=== PATIENT | male | born 1970 | race Caucasian/White ===

== ENCOUNTER 2020-06-03 19:33 | Emergency (ER) | payer MEDICAID ==
[~2020-06-03] VITALS: Ht 180.3 cm; Wt 97.7 kg
[~2020-06-03 19:33] MED LIST: CYCL-1 PO; NO HOME MEDS; OXYC-134 PO
[2020-06-03 19:44] VITALS: BP 136/91
[2020-06-03] MEDS ORDERED: ceFAZolin 1gm IM kit IM STA (20:08)
[2020-06-03] MEDS ORDERED: LIDOcaine 1% W/epiNEPHrine 1:200,000 10ml vial IJ ONE (20:10)
[2020-06-03] MEDS ORDERED: bacitracin 15gm ointment TP ONE (20:10)
[2020-06-03] MEDS ORDERED: ibuprofen tablet 400 MG TABLET PO ONE (20:10)
[2020-06-03] MEDS ORDERED: CEPH250T PO (20:32)
== END 2020-06-03 20:59 | disposition home or self-care (01) ==
LOC: ER 19:34
DX: S62.634A Displaced fracture of distal phalanx of right ring finger, initial encounter for closed fracture (principal); S61.312A Laceration without foreign body of right middle finger with damage to nail, initial encounter; Z86.69 Personal history of other diseases of the nervous system and sense organs; Z88.5 Allergy status to narcotic agent; Z79.2 Long term (current) use of antibiotics; Z79.899 Other long term (current) drug therapy; W27.8XXA Contact with other nonpowered hand tool, initial encounter; Y93.89 Activity, other specified; Y92.89 Other specified places as the place of occurrence of the external cause; Y99.8 Other external cause status
CPT/HCPCS: 29130; 73130; 96372; 99283; J0690

== ENCOUNTER 2020-10-05 10:36 | Emergency (ER) | payer MEDICAID ==
[~2020-10-05] VITALS: Ht 180.3 cm; Wt 102.3 kg
[2020-10-05] MEDS ORDERED: HYDROcodone/acetaminophen 10/325mg tab PO ONE (11:00)
[2020-10-05] MEDS ORDERED: HYDR-3965 PO (11:50)
[2020-10-05] MEDS ORDERED: METH-360 PO (11:50)
== END 2020-10-05 12:06 | disposition home or self-care (01) ==
LOC: ER 10:37
DX: R07.89 Other chest pain (principal); R07.81 Pleurodynia; R05 Cough; F17.200 Nicotine dependence, unspecified, uncomplicated; Z86.69 Personal history of other diseases of the nervous system and sense organs; Z72.89 Other problems related to lifestyle; Z88.5 Allergy status to narcotic agent; Z79.899 Other long term (current) drug therapy
CPT/HCPCS: 71046; 99283

== ENCOUNTER 2020-10-25 17:50 | Emergency (ER) | payer MEDICAID ==
[~2020-10-25] VITALS: Ht 180.3 cm; Wt 102.3 kg
[~2020-10-25 17:50] MED LIST changes: +HYDR-3965 PO; +METH-360 PO
[2020-10-25] MEDS ORDERED: ketorolac tromethamine 15mg/ml inj. IM ONE (18:25)
[2020-10-25] MEDS ORDERED: orphenadrine citrate 60mg/2ml inj. IM ONE (18:25)
[2020-10-25] MEDS ORDERED: ORPH100T2 PO (18:45)
[2020-10-25] MEDS ORDERED: IBUP-1984 PO (18:45)
[2020-10-25 19:20] VITALS: BP 142/81
== END 2020-10-25 19:21 | disposition home or self-care (01) ==
LOC: ER 17:50
DX: S29.011A Strain of muscle and tendon of front wall of thorax, initial encounter (principal); R07.81 Pleurodynia; Z86.69 Personal history of other diseases of the nervous system and sense organs; Z72.89 Other problems related to lifestyle; Z88.8 Allergy status to other drugs, medicaments and biological substances; Z79.899 Other long term (current) drug therapy; X50.0XXA Overexertion from strenuous movement or load, initial encounter; Y93.89 Activity, other specified; Y92.89 Other specified places as the place of occurrence of the external cause; Y99.8 Other external cause status
CPT/HCPCS: 71045; 96372; 99284; J1885; J2360

== ENCOUNTER 2020-12-25 15:41 | Emergency (ER) | payer MEDICAID ==
[~2020-12-25] VITALS: Ht 180.3 cm; Wt 99.9 kg
[~2020-12-25 15:41] MED LIST changes: -HYDR-3965 PO; +ORPH100T2 PO
[2020-12-25 16:22] LABS: BASOPHILS % (AUTO) 0.6 % (0-1); EOSINOPHILS # (AUTO) 0.1 X10'3 (0-0.9); EOSINOPHILS % (AUTO) 2.4 % (0-6); HEMATOCRIT 42.3 % (42.0-52.0); HEMOGLOBIN 14.6 g/dl (14.0-17.9); LYMPHOCYTES # (AUTO) 2.3 X10'3 (1.1-4.8); MEAN CORPUSCULAR HEMOGLOBIN 33.6 PG (27.0-31.0); MEAN CORPUSCULAR HGB CONC 34.5 g/dL (33.0-36.5); MEAN CORPUSCULAR VOLUME 97.3 FL (78-98); MEAN PLATELET VOLUME 6.1 FL (7.4-10.4); MONOCYTES # (AUTO) 0.7 X10'3 (0-0.9); NEUTROPHILS # (AUTO) 2.5 X10'3 (1.8-7.7); PLATELET COUNT 344 X10'3 (140-440); RED BLOOD COUNT 4.34 X10'6 (4.70-6.10); RED CELL DISTRIBUTION WIDTH 12.7 % (11.5-14.5); WHITE BLOOD COUNT 5.6 X10'3 (4.5-11.0)
[2020-12-25 16:40] LABS: ALANINE AMINOTRANSFERASE 49 U/L (12-78); ALBUMIN/GLOBULIN RATIO 1.1 (1.1-1.5); ALKALINE PHOSPHATASE 71 IU/L (46-116); ANION GAP 10 (8-16); ASPARTATE AMINO TRANSFERASE 25 U/L (10-37); BILIRUBIN,TOTAL 0.4 MG/DL (0.1-1.0); BLOOD UREA NITROGEN 9 MG/DL (7-18); BUN/CREATININE RATIO 12.5 (5.4-32.0); CALCIUM 9.3 MG/DL (8.5-10.1); CHLORIDE 98 MMOL/L (99-107); CREATININE 0.72 MG/DL (0.60-1.10); GLUCOSE 70 MG/DL (70-104); LIPASE 95 U/L (73-393); POTASSIUM 3.9 MMOL/L (3.5-5.1); SODIUM 135 MMOL/L (135-145); TOTAL CARBON DIOXIDE 26.9 MMOL/L (24-32); TOTAL PROTEIN 7.5 G/DL (6.4-8.2); eGFR > 90 ML/MIN
[2020-12-25] MEDS ORDERED: LIDOcaine 5% patch TP ONE (20:05)
[2020-12-25] MEDS ORDERED: ibuprofen tablet 400 MG TABLET PO ONE (20:05)
[2020-12-25] MEDS ORDERED: acetaminophen 325mg tablet PO ONE (20:05)
[2020-12-25] MEDS ORDERED: IBUP-1984 PO (20:07)
[2020-12-25] MEDS ORDERED: LIDO700A32 TOP (20:07)
[2020-12-25] MEDS ORDERED: ACET-812 PO (20:07)
[2020-12-25] MEDS ORDERED: HYDR-3965 PO (20:11)
[2020-12-25] MEDS ORDERED: ibuprofen 200mg tablet PO ONE (20:15)
[2020-12-25 20:34] VITALS: BP 147/105
== END 2020-12-25 20:33 | disposition home or self-care (01) ==
LOC: ER 15:42
DX: R07.81 Pleurodynia (principal); R10.9 Unspecified abdominal pain; K59.00 Constipation, unspecified; G40.909 Epilepsy, unspecified, not intractable, without status epilepticus; Z79.899 Other long term (current) drug therapy
CPT/HCPCS: 36415; 80053; 83690; 85025; 99283

== ENCOUNTER 2022-01-20 08:56 | Emergency (ER) | payer MEDICAID ==
[~2022-01-20] VITALS: Ht 180.3 cm; Wt 102.3 kg
[~2022-01-20 08:56] MED LIST changes: +ACET-812 PO; +LIDO700A32 TOP
[2022-01-20] MEDS ORDERED: ibuprofen tablet 400 MG TABLET PO ONE (10:05)
[2022-01-20 10:52] VITALS: BP 158/100
--- NOTE | 2022-01-20 10:53 | NUR ---
Splint applied, CSM intact.
--- NOTE | 2022-01-20 10:53 | NUR ---
Pt wanted BG checked. Result 97
== END 2022-01-20 11:21 | disposition home or self-care (01) ==
LOC: ER 08:56
DX: M25.531 Pain in right wrist (principal); R22.31 Localized swelling, mass and lump, right upper limb; Z72.89 Other problems related to lifestyle; Z88.8 Allergy status to other drugs, medicaments and biological substances; Z79.899 Other long term (current) drug therapy
CPT/HCPCS: 29125; 73110; 82948; 99284

== ENCOUNTER 2022-09-14 15:12 | Emergency (ER) | payer MEDICAID ==
[~2022-09-14] VITALS: Ht 180.3 cm; Wt 104.0 kg
[2022-09-14 15:33] LABS: BASOPHILS % (AUTO) 0.7 % (0-1); EOSINOPHILS # (AUTO) 0.1 X10'3 (0-0.9); EOSINOPHILS % (AUTO) 2.1 % (0-6); HEMATOCRIT 42.1 % (42.0-52.0); HEMOGLOBIN 14.5 g/dl (14.0-17.9); LYMPHOCYTES # (AUTO) 2.1 X10'3 (1.1-4.8); LYMPHOCYTES % (AUTO) 31.6 % (21-51); MEAN CORPUSCULAR HEMOGLOBIN 33.8 PG (27.0-31.0); MEAN CORPUSCULAR HGB CONC 34.5 g/dL (33.0-36.5); MEAN CORPUSCULAR VOLUME 97.9 FL (78-98); MEAN PLATELET VOLUME 6.1 FL (7.4-10.4); MONOCYTES # (AUTO) 0.7 X10'3 (0-0.9); MONOCYTES % (AUTO) 10.8 % (2-12); NEUTROPHILS # (AUTO) 3.6 X10'3 (1.8-7.7); NEUTROPHILS % (AUTO) 54.8 % (42-75); PLATELET COUNT 343 X10'3 (140-440); RED CELL DISTRIBUTION WIDTH 12.8 % (11.5-14.5); WHITE BLOOD COUNT 6.6 X10'3 (4.5-11.0)
[2022-09-14 15:52] LABS: ALANINE AMINOTRANSFERASE 42 U/L (12-78); ALBUMIN 3.9 G/DL (3.4-5.0); ALBUMIN/GLOBULIN RATIO 1.3 (1.1-1.5); ALKALINE PHOSPHATASE 64 IU/L (46-116); ANION GAP 8 (8-16); ASPARTATE AMINO TRANSFERASE 27 U/L (10-37); BILIRUBIN,TOTAL 0.4 MG/DL (0.1-1.0); BLOOD UREA NITROGEN 11 MG/DL (7-18); BUN/CREATININE RATIO 11.7 (5.4-32.0); CALCIUM 8.9 MG/DL (8.5-10.1); CHLORIDE 97 MMOL/L (99-107); CREATININE 0.94 MG/DL (0.60-1.10); GLUCOSE 94 MG/DL (70-104); MAGNESIUM 1.9 MG/DL (1.5-2.4); POTASSIUM 4.1 MMOL/L (3.5-5.1); SODIUM 131 MMOL/L (135-145); TOTAL CARBON DIOXIDE 26.4 MMOL/L (24-32); eGFR 84 ML/MIN
[2022-09-14] MEDS ORDERED: LORA-269 PO (17:42)
[2022-09-14 17:54] VITALS: BP 127/90
== END 2022-09-14 17:59 | disposition home or self-care (01) ==
LOC: ER 16:22
DX: R07.89 Other chest pain (principal); I10 Essential (primary) hypertension; F17.200 Nicotine dependence, unspecified, uncomplicated; Z86.69 Personal history of other diseases of the nervous system and sense organs; Z72.89 Other problems related to lifestyle; Z88.5 Allergy status to narcotic agent; Z79.899 Other long term (current) drug therapy
CPT/HCPCS: 36415; 71045; 80053; 83735; 83880; 84484; 85025; 93005; 99285

== ENCOUNTER 2022-12-17 08:13 | Emergency (ER) | payer MEDICAID ==
[~2022-12-17 08:13] MED LIST changes: +LORA-269 PO
== END 2022-12-17 10:22 | disposition left against medical advice (07) ==
LOC: ER 08:13
DX: M79.643 Pain in unspecified hand (principal); Z53.21 Procedure and treatment not carried out due to patient leaving prior to being seen by health care provider

== ENCOUNTER 2023-01-15 19:55 | Emergency (ER) | payer MEDICAID ==
[~2023-01-15] VITALS: Ht 180.3 cm; Wt 102.3 kg
[~2023-01-15 19:55] MED LIST changes: -ORPH100T2 PO; +ORPH100T4 PO
[2023-01-15 19:59] VITALS: BP 125/79
[2023-01-15] MEDS ORDERED: oxyCODONE/APAP 10/325mg tablet PO ONE (22:30)
[2023-01-15] MEDS ORDERED: OXYC-150 PO ×3 (23:46→23:59)
== END 2023-01-16 00:01 | disposition home or self-care (01) ==
LOC: ER 19:55
DX: S62.024A Nondisplaced fracture of middle third of navicular [scaphoid] bone of right wrist, initial encounter for closed fracture (principal); F17.200 Nicotine dependence, unspecified, uncomplicated; I10 Essential (primary) hypertension; Z88.5 Allergy status to narcotic agent; Z79.899 Other long term (current) drug therapy; Z79.1 Long term (current) use of non-steroidal anti-inflammatories (NSAID); Z79.2 Long term (current) use of antibiotics
CPT/HCPCS: 29125; 73110; 73130; 99284

== ENCOUNTER 2023-03-28 21:39 | Emergency (ER) | payer MEDICAID ==
[~2023-03-28] VITALS: Ht 180.3 cm; Wt 100.0 kg
[~2023-03-28 21:39] MED LIST changes: +OXYC-150 PO
[2023-03-28] MEDS ORDERED: LAMO200T51 PO (22:16)
[2023-03-28] MEDS ORDERED: LISI10TA27 PO (22:16)
[2023-03-28] MEDS ORDERED: ibuprofen tablet 400 MG TABLET PO ONE (22:40)
[2023-03-28 23:00] VITALS: BP 110/75
== END 2023-03-28 23:01 | disposition home or self-care (01) ==
LOC: ER 21:39
DX: M25.561 Pain in right knee (principal); R53.1 Weakness; I10 Essential (primary) hypertension; G40.909 Epilepsy, unspecified, not intractable, without status epilepticus; Z88.8 Allergy status to other drugs, medicaments and biological substances; Z79.899 Other long term (current) drug therapy; Z72.89 Other problems related to lifestyle; X50.1XXA Overexertion from prolonged static or awkward postures, initial encounter; Y93.H2 Activity, gardening and landscaping; Y92.89 Other specified places as the place of occurrence of the external cause; Y99.8 Other external cause status
CPT/HCPCS: 29505; 73564; 99284

== ENCOUNTER 2023-10-27 09:40 | Inpatient (IN) | payer MEDICAID ==
[~2023-10-27] VITALS: Ht 180.3 cm; Wt 95.5 kg
[~2023-10-27 09:40] MED LIST changes: -ACET-812 PO; -CYCL-1 PO; +LAMO200T51 PO; -LIDO700A32 TOP; +LISI10TA27 PO; -LORA-269 PO; -METH-360 PO; -NO HOME MEDS; -ORPH100T4 PO; -OXYC-134 PO; -OXYC-150 PO
[2023-10-27 12:03] LABS: BASOPHILS % (AUTO) 0.1 % (0-1); EOSINOPHILS # (AUTO) 0.2 X10'3 (0-0.9); EOSINOPHILS % (AUTO) 1.7 % (0-6); HEMATOCRIT 41.9 % (42.0-52.0); HEMOGLOBIN 14.2 g/dl (14.0-17.9); LYMPHOCYTES # (AUTO) 1.2 X10'3 (1.1-4.8); LYMPHOCYTES % (AUTO) 12.8 % (21-51); MEAN CORPUSCULAR HEMOGLOBIN 33.3 PG (27.0-31.0); MEAN CORPUSCULAR HGB CONC 33.8 g/dL (33.0-36.5); MEAN CORPUSCULAR VOLUME 98.7 FL (78-98); MEAN PLATELET VOLUME 5.8 FL (7.4-10.4); MONOCYTES % (AUTO) 11.4 % (2-12); NEUTROPHILS # (AUTO) 6.7 X10'3 (1.8-7.7); PLATELET COUNT 335 X10'3 (140-440); RED BLOOD COUNT 4.25 X10'6 (4.70-6.10); RED CELL DISTRIBUTION WIDTH 12.9 % (11.5-14.5); WHITE BLOOD COUNT 9.1 X10'3 (4.5-11.0)
[2023-10-27 12:29] LABS: ALANINE AMINOTRANSFERASE 18 U/L (12-78); ALBUMIN 3.9 G/DL (3.4-5.0); ALBUMIN/GLOBULIN RATIO 1.1 (1.1-1.5); ALKALINE PHOSPHATASE 67 IU/L (46-116); ANION GAP 8 (8-16); ASPARTATE AMINO TRANSFERASE 15 U/L (10-37); BILIRUBIN,TOTAL 0.8 MG/DL (0.1-1.0); BLOOD UREA NITROGEN 6 MG/DL (7-18); CALCIUM 9.4 MG/DL (8.5-10.1); CHLORIDE 92 MMOL/L (99-107); CREATININE 0.75 MG/DL (0.60-1.10); GLUCOSE 91 MG/DL (70-104); POTASSIUM 4.7 MMOL/L (3.5-5.1); SODIUM 128 MMOL/L (135-145); TOTAL CARBON DIOXIDE 28.5 MMOL/L (24-32); TOTAL PROTEIN 7.5 G/DL (6.4-8.2); eCRCL 119 ML/MIN; eGFR > 90 ML/MIN
[2023-10-27] MEDS ORDERED: iohexol 300mg/ml 100ml inj. ONE (15:11)
[2023-10-27] MEDS ORDERED: CefTRIAXone 2gm/D5W 50ml BAG 50 ML IV ONE (15:20)
[2023-10-27] MEDS ORDERED: vancomycin/NS 1 GM ADD-VANTAGE 250 ML IV ONE (15:20)
[2023-10-27] MEDS ORDERED: nicotine 21mg patch - 24 hr TD ONE (15:20)
[2023-10-27 15:52] LABS: BILIRUBIN,URINE NEGATIVE (Neg); CLARITY,URINE CLEAR (Clear); COLOR,URINE YELLOW (Yellow); GLUCOSE, URINE NEGATIVE (Neg); KETONES,URINE 15 mg/dl (Neg); LEUKOCYTE ESTERASE ,URINE NEGATIVE (Neg); NITRITES, URINE NEGATIVE (Neg); OCCULT BLOOD,URINE NEGATIVE (Neg); PH,URINE 6.5 (4.8-8.0); PROTEIN,URINE NEGATIVE (Neg); UROBILINOGEN,URINE 0.2 E.U/dL (0.2-1.0)
[2023-10-27 15:57] LABS: UA COLLECTION TYPE CLN CATCH MIDSTREAM
[2023-10-27] MEDS ORDERED: LORazepam 2 mg/ml vial IV PRN (18:10)
[2023-10-27] MEDS ORDERED: dicyclomine 10 MG capsule PO PRN (18:10)
[2023-10-27] MEDS ORDERED: potassium Cl 20 mEq SR tablet PO PRN ×2 (18:10)
[2023-10-27] MEDS ORDERED: cloNIDine 0.1 mg tablet PO PRN (18:10)
[2023-10-27] MEDS ORDERED: cyclobenzaprine 10mg tablet PO PRN (18:10)
[2023-10-27] MEDS ORDERED: magnesium Cl slow-release 64mg tablet PO PRN (18:10)
[2023-10-27] MEDS ORDERED: potassium Cl 40MEQ/1/2NS 520ml 520 ML IV PRN (18:10)
[2023-10-27] MEDS ORDERED: mag hydrox/Alum hydrox/simeth 30ml oral suspension PO PRN (18:10)
[2023-10-27] MEDS ORDERED: haloperidol 5mg tablet PO PRN (18:10)
[2023-10-27] MEDS ORDERED: nicotine 14mg patch - 24hr TD ONE (18:10)
[2023-10-27] MEDS ORDERED: magnesium hydroxide 30ml (MOM) UD suspension PO PRN (18:10)
[2023-10-27] MEDS ORDERED: ondansetron/PF 4mg/2ml inj IV PRN (18:10)
[2023-10-27] MEDS ORDERED: magnesium 4gm in 100ml NS 100 ML IV PRN (18:10)
[2023-10-27] MEDS: folic acid 1mg/0.2ml inj IV SCH ×2 (19:41→19:44)
[2023-10-27] MEDS: acetaminophen 325mg tablet PO PRN (20:39)
[2023-10-27] MEDS: thiamine 100mg/ml 2ml inj. IV SCH (21:02)
[2023-10-27] MEDS: docusate sod 100mg capsule PO SCH (21:02)
[2023-10-27] MEDS: heparin, porcine 5000 units/ml vial SQ SCH (21:02)
[2023-10-28] MEDS: docusate sod 100mg capsule PO SCH ×2 (08:00→19:33)
[2023-10-28] MEDS ORDERED: LAMOTRIGINE 200 MG PO SCH (08:00)
[2023-10-28 08:27] VITALS: BP 118/78; PULSE 77; RESP 13; TEMP 98.1; O2SAT 96
[2023-10-28 08:42] LABS: BASOPHILS % (AUTO) 0.4 % (0-1); EOSINOPHILS # (AUTO) 0.2 X10'3 (0-0.9); EOSINOPHILS % (AUTO) 2.7 % (0-6); HEMOGLOBIN 14.3 g/dl (14.0-17.9); LYMPHOCYTES # (AUTO) 1.1 X10'3 (1.1-4.8); LYMPHOCYTES % (AUTO) 12.1 % (21-51); MEAN CORPUSCULAR HEMOGLOBIN 34.2 PG (27.0-31.0); MEAN CORPUSCULAR HGB CONC 34.8 g/dL (33.0-36.5); MEAN CORPUSCULAR VOLUME 98.2 FL (78-98); MEAN PLATELET VOLUME 6.1 FL (7.4-10.4); MONOCYTES # (AUTO) 0.9 X10'3 (0-0.9); MONOCYTES % (AUTO) 10.2 % (2-12); NEUTROPHILS # (AUTO) 6.7 X10'3 (1.8-7.7); NEUTROPHILS % (AUTO) 74.6 % (42-75); PLATELET COUNT 322 X10'3 (140-440); PROTHROMBIN TIME 10.5 SECONDS (9.0-12.0); RED BLOOD COUNT 4.18 X10'6 (4.70-6.10)
[2023-10-28 08:51] LABS: ALANINE AMINOTRANSFERASE 18 U/L (12-78); ALBUMIN 3.3 G/DL (3.4-5.0); ALBUMIN/GLOBULIN RATIO 0.9 (1.1-1.5); ALKALINE PHOSPHATASE 62 IU/L (46-116); AMYLASE 22 U/L (25-115); ANION GAP 11 (8-16); ASPARTATE AMINO TRANSFERASE 14 U/L (10-37); BILIRUBIN,TOTAL 0.6 MG/DL (0.1-1.0); BLOOD UREA NITROGEN 7 MG/DL (7-18); CALCIUM 8.9 MG/DL (8.5-10.1); CHLORIDE 94 MMOL/L (99-107); CHOL/HDL RATIO 2.2 (0.00-4.99); CHOLESTEROL 169 MG/DL (0-200); CREATININE 0.78 MG/DL (0.60-1.10); GLUCOSE 93 MG/DL (70-104); HDL CHOLESTEROL 76 MG/DL (35-60); LDL CHOLESTEROL 68 MG/DL (50-100); LIPASE 15 U/L (16-77); MAGNESIUM 1.8 MG/DL (1.5-2.4); PHOSPHORUS 3.1 MG/DL (2.3-4.5); POTASSIUM 4.1 MMOL/L (3.5-5.1); SODIUM 130 MMOL/L (135-145); TOTAL CARBON DIOXIDE 24.9 MMOL/L (24-32); TOTAL PROTEIN 6.9 G/DL (6.4-8.2); TRIGLYCERIDES 58 MG/DL (20-135); eCRCL 114 ML/MIN; eGFR > 90 ML/MIN
[2023-10-28] MEDS: vancomycin/NS 1 GM ADD-VANTAGE 250 ML IV SCH ×2 (10:09→16:00)
[2023-10-28] MEDS: atorvastatin 10mg tablet PO SCH (10:14)
[2023-10-28] MEDS: heparin, porcine 5000 units/ml vial SQ SCH ×2 (10:14→19:33)
[2023-10-28] MEDS: thiamine 100mg/ml 2ml inj. IV SCH ×3 (10:14→21:38)
[2023-10-28] MEDS: multivitamins, therapeutics tablet PO SCH (10:16)
[2023-10-28] MEDS: lisinopril 10 MG tablet PO SCH (10:16)
[2023-10-28 10:21] LABS: HEMOGLOBIN A1C 5.5 % (4.5-6.2)
[2023-10-28 12:17] VITALS: BP 102/67; PULSE 77; RESP 15; TEMP 97.4; O2SAT 96
[2023-10-28] MEDS ORDERED: VANCOMYCIN LEVEL IV ONE (14:30)
[2023-10-28 15:35] VITALS: BP 103/67; PULSE 82; RESP 21; TEMP 98.2; O2SAT 95
[2023-10-28] MEDS: CefTRIAXone 2gm/D5W 50ml BAG 50 ML IV SCH (16:49)
[2023-10-28 18:00] VITALS: BP 115/74; PULSE 76; RESP 16; TEMP 99; O2SAT 97
[2023-10-28] MEDS ORDERED: emollient combination-Eucerin 200 ML LOTION TP PRN (18:40)
[2023-10-28] MEDS ORDERED: mineral oil/petrolatum, white cream 60gm jar TP PRN (18:50)
[2023-10-28 20:00] VITALS: RESP 16; O2SAT 96
[2023-10-28] MEDS: nicotine 7mg patch - 24hr TD SCH (20:41)
[2023-10-28 22:00] VITALS: BP 114/69; PULSE 71; RESP 16; TEMP 98.6; O2SAT 97
[2023-10-29] VITALS (7 sets, daily range): BP systolic 108–133; BP diastolic 68–87; PULSE 61–82; RESP 12–18; TEMP 97.5–98.9; O2SAT 97–98
[2023-10-29] MEDS: vancomycin/NS 1 GM ADD-VANTAGE 250 ML IV SCH ×2 (00:39→10:52)
[2023-10-29] MEDS ORDERED: HYDROcodone/acetaminophen 10/325mg tab PO PRN ×2 (02:15→07:50)
[2023-10-29] MEDS ORDERED: VANCOMYCIN LEVEL IV ONE (07:30)
[2023-10-29] MEDS: thiamine 100mg/ml 2ml inj. IV SCH ×3 (08:00→20:12)
[2023-10-29] MEDS: docusate sod 100mg capsule PO SCH ×2 (08:00→20:11)
[2023-10-29] MEDS: lisinopril 10 MG tablet PO SCH (08:07)
[2023-10-29] MEDS: atorvastatin 10mg tablet PO SCH (08:07)
[2023-10-29] MEDS: multivitamins, therapeutics tablet PO SCH (08:07)
[2023-10-29] MEDS: CefTRIAXone 2gm/D5W 50ml BAG 50 ML IV SCH (08:10)
[2023-10-29] MEDS: heparin, porcine 5000 units/ml vial SQ SCH ×2 (08:10→20:12)
[2023-10-29] MEDS: LAMOTRIGINE 200 MG PO SCH (10:53)
[2023-10-29 11:59] LABS: BASOPHILS % (AUTO) 0.4 % (0-1); EOSINOPHILS # (AUTO) 0.3 X10'3 (0-0.9); HEMATOCRIT 39.6 % (42.0-52.0); HEMOGLOBIN 13.6 g/dl (14.0-17.9); LYMPHOCYTES # (AUTO) 1.4 X10'3 (1.1-4.8); MEAN CORPUSCULAR HEMOGLOBIN 33.8 PG (27.0-31.0); MEAN CORPUSCULAR HGB CONC 34.4 g/dL (33.0-36.5); MEAN CORPUSCULAR VOLUME 98.3 FL (78-98); MEAN PLATELET VOLUME 6.3 FL (7.4-10.4); MONOCYTES % (AUTO) 11.5 % (2-12); NEUTROPHILS # (AUTO) 5.8 X10'3 (1.8-7.7); NEUTROPHILS % (AUTO) 68.1 % (42-75); PLATELET COUNT 339 X10'3 (140-440); RED BLOOD COUNT 4.03 X10'6 (4.70-6.10); RED CELL DISTRIBUTION WIDTH 12.7 % (11.5-14.5); WHITE BLOOD COUNT 8.5 X10'3 (4.5-11.0)
[2023-10-29 12:13] LABS: INR 0.9 INR; PROTHROMBIN TIME 10.2 SECONDS (9.0-12.0)
[2023-10-29 12:19] LABS: ANION GAP 9 (8-16); CHLORIDE 99 MMOL/L (99-107); GLUCOSE 119 MG/DL (70-104); POTASSIUM 3.9 MMOL/L (3.5-5.1); SODIUM 132 MMOL/L (135-145); TOTAL CARBON DIOXIDE 23.8 MMOL/L (24-32)
[2023-10-29 12:20] LABS: ALANINE AMINOTRANSFERASE 18 U/L (12-78); ALBUMIN 3.3 G/DL (3.4-5.0); ALBUMIN/GLOBULIN RATIO 0.9 (1.1-1.5); ALKALINE PHOSPHATASE 59 IU/L (46-116); AMYLASE 23 U/L (25-115); ASPARTATE AMINO TRANSFERASE 13 U/L (10-37); BILIRUBIN,TOTAL 0.3 MG/DL (0.1-1.0); BLOOD UREA NITROGEN 9 MG/DL (7-18); BUN/CREATININE RATIO 11.8 (10.0-20.0); CREATININE 0.76 MG/DL (0.60-1.10); LIPASE 18 U/L (16-77); MAGNESIUM 1.9 MG/DL (1.5-2.4); TOTAL PROTEIN 6.9 G/DL (6.4-8.2); VANCOMYCIN,TROUGH 7.8 ug/mL (10.0-20.0); eCRCL 117 ML/MIN; eGFR > 90 ML/MIN
[2023-10-29] MEDS: VANCOMYCIN 1,500MG in normal saline IV soln 300 ML IV SCH (16:00)
[2023-10-29] MEDS: salt irrigation nasal spray 45 ML SPRAY NS PRN (18:04)
[2023-10-29] MEDS: folic acid 1mg/0.2ml inj IV SCH (18:05)
[2023-10-29] MEDS: nicotine 7mg patch - 24hr TD SCH (20:12)
[2023-10-29] MEDS: acetaminophen 325mg tablet PO PRN (20:16)
[2023-10-30] MEDS: VANCOMYCIN 1,500MG in normal saline IV soln 300 ML IV SCH ×2 (00:36→08:00)
[2023-10-30] MEDS: salt irrigation nasal spray 45 ML SPRAY NS PRN ×2 (00:39→08:39)
[2023-10-30 02:00] VITALS: BP 112/69; PULSE 70; RESP 12; TEMP 97.6; O2SAT 97
[2023-10-30] MEDS ORDERED: VANCOMYCIN LEVEL IV ONE (07:30)
[2023-10-30 08:00] VITALS: RESP 17; O2SAT 98
[2023-10-30] MEDS: docusate sod 100mg capsule PO SCH (08:00)
[2023-10-30] MEDS: atorvastatin 10mg tablet PO SCH (08:36)
[2023-10-30] MEDS: thiamine 100mg/ml 2ml inj. IV SCH (08:36)
[2023-10-30] MEDS: multivitamins, therapeutics tablet PO SCH (08:36)
[2023-10-30 08:37] VITALS: BP_SYST 139; PULSE 75
[2023-10-30] MEDS: LAMOTRIGINE 200 MG PO SCH (08:37)
[2023-10-30] MEDS: lisinopril 10 MG tablet PO SCH (08:37)
[2023-10-30] MEDS: nicotine 7mg patch - 24hr TD SCH (08:38)
[2023-10-30] MEDS: heparin, porcine 5000 units/ml vial SQ SCH (08:39)
[2023-10-30] MEDS: CefTRIAXone 2gm/D5W 50ml BAG 50 ML IV SCH (08:39)
[2023-10-30 08:55] LABS: BASOPHILS % (AUTO) 0.3 % (0-1); EOSINOPHILS # (AUTO) 0.4 X10'3 (0-0.9); EOSINOPHILS % (AUTO) 5.6 % (0-6); HEMATOCRIT 39.1 % (42.0-52.0); HEMOGLOBIN 13.6 g/dl (14.0-17.9); LYMPHOCYTES # (AUTO) 1.2 X10'3 (1.1-4.8); LYMPHOCYTES % (AUTO) 17.2 % (21-51); MEAN CORPUSCULAR HEMOGLOBIN 34.1 PG (27.0-31.0); MEAN CORPUSCULAR HGB CONC 34.7 g/dL (33.0-36.5); MEAN CORPUSCULAR VOLUME 98.1 FL (78-98); MEAN PLATELET VOLUME 6.1 FL (7.4-10.4); MONOCYTES # (AUTO) 0.8 X10'3 (0-0.9); MONOCYTES % (AUTO) 10.7 % (2-12); NEUTROPHILS # (AUTO) 4.7 X10'3 (1.8-7.7); NEUTROPHILS % (AUTO) 66.2 % (42-75); PLATELET COUNT 357 X10'3 (140-440); RED BLOOD COUNT 3.99 X10'6 (4.70-6.10); RED CELL DISTRIBUTION WIDTH 12.7 % (11.5-14.5)
[2023-10-30 09:03] LABS: INR 0.9 INR; PROTHROMBIN TIME 10.2 SECONDS (9.0-12.0)
[2023-10-30 10:17] LABS: ALANINE AMINOTRANSFERASE 17 U/L (12-78); ALBUMIN 3.4 G/DL (3.4-5.0); ALBUMIN/GLOBULIN RATIO 0.9 (1.1-1.5); ALKALINE PHOSPHATASE 59 IU/L (46-116); ASPARTATE AMINO TRANSFERASE 11 U/L (10-37); BILIRUBIN,TOTAL 0.5 MG/DL (0.1-1.0); CALCIUM 9.2 MG/DL (8.5-10.1); TOTAL CARBON DIOXIDE 26.8 MMOL/L (24-32); TOTAL PROTEIN 7.2 G/DL (6.4-8.2)
[2023-10-30 10:20] LABS: AMYLASE 21 U/L (25-115); LIPASE 15 U/L (16-77); MAGNESIUM 1.9 MG/DL (1.5-2.4); VANCOMYCIN,TROUGH 15.5 ug/mL (10.0-20.0)
[2023-10-30 10:22] LABS: ANION GAP 8 (8-16); BLOOD UREA NITROGEN 7 MG/DL (7-18); CHLORIDE 96 MMOL/L (99-107); GLUCOSE 99 MG/DL (70-104); PHOSPHORUS 3.8 MG/DL (2.3-4.5); POTASSIUM 3.8 MMOL/L (3.5-5.1); SODIUM 131 MMOL/L (135-145); eCRCL 127 ML/MIN; eGFR > 90 ML/MIN
[2023-10-30] MEDS ORDERED: NICO-630 TD (13:27)
[2023-10-30] MEDS ORDERED: SULF1TAB49 PO (13:27)
== END 2023-10-30 14:05 | disposition home or self-care (01) | DRG 383 ==
LOC: ER 09:41 → ED HOLD 18:16 → EDBEDREQ 10-28 06:19 → PCU 3S 10-28 08:09
PROVIDERS: ADMIT Family Medicine; ATTEND Family Medicine
DX: L03.211 Cellulitis of face (principal); E87.1 Hypo-osmolality and hyponatremia; L03.213 Periorbital cellulitis; G40.909 Epilepsy, unspecified, not intractable, without status epilepticus; I10 Essential (primary) hypertension; F17.210 Nicotine dependence, cigarettes, uncomplicated; E78.5 Hyperlipidemia, unspecified; F10.20 Alcohol dependence, uncomplicated; M25.561 Pain in right knee; D75.89 Other specified diseases of blood and blood-forming organs; Z88.5 Allergy status to narcotic agent; Z79.899 Other long term (current) drug therapy; Z83.3 Family history of diabetes mellitus
CPT/HCPCS: 36415; 70488; 71045; 73721; 80053; 80061; 80202; 81003; 82150; 83036; 83605; 83690; 83735; 84100; 84145; 85025; 85610; 87040; 87081; 93005; 99285; G0378; J0696; J1644; J3370; J3411; J3490; J7040; Q9967

== ENCOUNTER 2023-12-05 07:57 | Emergency (ER) | payer MEDICAID ==
[~2023-12-05] VITALS: Ht 180.3 cm; Wt 98.3 kg
[~2023-12-05 07:57] MED LIST changes: +ATOR20TA66 PO
[2023-12-05 07:59] VITALS: BP 143/87; PULSE 74; RESP 16; TEMP 98; O2SAT 99
[2023-12-05] MEDS: acetaminophen 325mg tablet PO ONE (08:31)
[2023-12-05] MEDS: ibuprofen tablet 400 MG TABLET PO ONE (08:32)
== END 2023-12-05 20:51 | disposition home or self-care (01) ==
LOC: ER 07:58
DX: R07.81 Pleurodynia (principal); R07.89 Other chest pain; I10 Essential (primary) hypertension; Z72.89 Other problems related to lifestyle; Z88.5 Allergy status to narcotic agent; Z79.899 Other long term (current) drug therapy
CPT/HCPCS: 71046; 99283

== ENCOUNTER 2025-06-06 08:50 | Emergency (ER) | payer MEDICAID ==
[~2025-06-06] VITALS: Ht 180.3 cm; Wt 95.5 kg
[2025-06-06 08:55] VITALS: BP 131/80; PULSE 61; RESP 18; TEMP 97.6; O2SAT 98
--- NOTE | 2025-06-06 09:36 | RADIOLOGY REPORT ---
CLINICAL INDICATION: Shoulder Pain TECHNIQUE: 3 radiographic views of the right shoulder were obtained. Comparison: None FINDINGS/IMPRESSION: There is no evidence of acute fracture or dislocation. Chronic appearing fracture of the distal right clavicle.
--- NOTE | 2025-06-06 09:37 | Physician Documentation ---
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 Findings of burning and pain with range of motion ,decreased range of motion. Day of Onset: Jun 06, 2025 Tetanus within 5 years?: No Medication Reconciliation Allergies: Coded Allergies: codeine (Verified Allergy, Unknown, 06/06/25) Scheduled Atorvastatin Calcium (LIPITOR tablet), 20 MG PO HS, (Reported) Lamotrigine (Lamotrigine ER), 3 TAB PO DAILY, (Reported) Lisinopril (Lisinopril), 1 TAB PO DAILY, (Reported) Past Medical History Past Medical History: Seizures, Hypertension Past Surgical History: no surgical history Patient History: FH: diabetes mellitus MOTHER FH: heart disease FATHER Patient's father is FATHER Patient's mother is MOTHER Alcohol Use: Occasionally Drug Use: none Lives with: Spouse, Other Lives In: Home Occupation: disabled Review of Systems All Other Systems at this time: Reviewed and Negative ROS As stated above in the HPI, otherwise all systems are reviewed and negative. Physical Exam Vital Signs: Temperature: 97.6, Source: Temporal, Heart Rate: 61, Respiratory Rate: 18, BP: 131/80, Pulse Oximetry: 98, Weight: 95.450 Physical Exam General: Alert, no apparent distress. Cardiovascular: Regular rate and rhythm, no murmurs. Gastrointestinal: Soft, nontender, nondistended. Bowels sounds present. Extremities: Normal range of motion, no deformity. Positive drop-arm test in the right shoulder, decreased range of motion Neurologic: Oriented x4. Psychiatric: Normal mood and affect. Skin: Normal color, warm and dry. No edema, no ecchymosis. Progress Results/Orders Results/Orders Orders - DANIEL ALFRED NP Shoulder, Complete (Min 2 Vws) (06/06/25 08:58) Ortho Orders (06/06/25 ) Completed Orders - DANIEL ALFRED NP Shoulder, Complete (Min 2 Vws) (06/06/25 08:58) Ketorolac Trometh 30mg/Ml Vial (Toradol (06/06/25 09:40) Medications Received in ER Medications (Trade) Dose Ordered Sig/Rachael Route PRN Reason Start Time Stop Time Status Last Admin Dose Admin (Toradol inj. 30mg/ml) 30 mg ONCE ONCE IM 06/06/25 09:40 06/06/25 09:41 DC 06/06/25 09:42 30 MG Vital Signs 06/06/25 08:55 Temp 97.6 Pulse 61 Resp 18 B/P (MAP) 131/80 Pulse Ox 98 Medical Decision Making Findings He has a presents with a clinical indications internal right rotator cuff shilohang saba currently I am recommending he use a sling at night and take ibuprofen as directed along with getting a referral for physical therapy Appears to be a chronic looking previous clavicle fracture which I appreciated in his x-ray Differential Dx:Considerations: Include: AC separation, Adhesive capsulitis, arthritis, Bicipital tendonitis, Calcific tendonitis, Cervical disc disease, Contusion, Dislocation, Fracture: Humerus, Fracture: Scapula, Fracture: Clavicle, Gallbladder Disease, Hematoma, Impingement syndrome, Myocardial infarction, Neurovascular Injury, Rotator cuff injury, SC dislocation, Sprain, Subacromial bursitis, other Departure Disposition: 01 HOME / SELF CARE / HOMELESS Impression: Primary Impression: Shoulder pain Additional Impressions: Shoulder joint pain Tendinitis of shoulder Discharge Instructions: Secondary Shoulder Impingement Syndrome Rehab- SportsMed, Shoulder Pain, [id number] Referrals: NO PRIMARY CARE PROVIDER (PCP) Signature Scribe Signature: gf Attestation: Scribed for Daniel Alfred Manager Of Financial Reporting by Daniel Kebede NP . 06/06/25 13:32 DANIEL ALFRED NP Jun 06, 2025 09:37
[2025-06-06] MEDS: ketorolac trometh 30MG/ML vial 30 MG/ML VIAL IM ONE (09:42)
== END 2025-06-06 09:50 | disposition home or self-care (01) ==
LOC: ER 08:51
DX: M25.511 Pain in right shoulder (principal); I10 Essential (primary) hypertension; Z88.5 Allergy status to narcotic agent; Z79.899 Other long term (current) drug therapy; Z72.89 Other problems related to lifestyle
CPT/HCPCS: 73030; 96372; 99283; J1885; A4565